=== PATIENT | female | born 1955 | race Caucasian/White ===

== ENCOUNTER 2016-07-15 10:17 | Day surgery (SDC) | payer BC ==
[~2016-07-15] VITALS: Ht 154.9 cm; Wt 77.1 kg
[~2016-07-15 10:17] MED LIST: AMITRIPTYLINE H25 MG PO; ASMANEX0.135 GM; CLOTRIMAZOLE10 MG PO; CYMBALTA60 MG PO; DULOXETINE HCL30 MG PO; EVOXAC30 MG PO; FLEXERIL10 MG PO; FLOMAX0.4 MG PO; FLUCONAZOLE100 M1 PO; HYDROXYCHLOROQ200 MG PO; HYDROXYCHLOROQUINE; LIPITOR; LIPITOR10 MG; LISINOPRIL5 MG PO; LORAZEPAM0.5 MG PO; LORTAB 5-325 M1 EACH PO; LYRICA25 MG PO; LYRICA50 MG; LYRICA50 MG PO; LYRICA75 MG PO; NAPROSYN-EC500 MG PO; NORCO 5/3251 TABLET PO; NUVIGIL150 MG PO; OMEPRAZOLE20 M1 PO; OMEPRAZOLE20 M3; OMEPRAZOLE40 M1 PO; PROMETHAZINE HC25 M1 PO; TRAMADOL HCL50 MG; TRAMADOL HCL50 MG PO; TRIAMCINOLONE A15 GM TP; TYLENOL EXTRA500 MG PO; VOLTAREN 1% GE100 GM TP; ZESTRIL,PRINIVIL5 MG; ZESTRIL,PRINIVIL5 MG PO; ZOFRAN ODT4 MG PO; ZOLOFT50 MG PO; ZOMIG5 MG PO; [UNRECOGNIZED DRUG - OTHER]
[2016-07-15 10:44] VITALS: BP 123/60
[2016-07-15 13:47] VITALS: BP 126/82
[2016-07-15 14:32] VITALS: BP 127/66
== END 2016-07-15 14:40 | disposition home or self-care (01) ==
LOC: SDC 10:17
DX: D24.1 Benign neoplasm of right breast (principal); N60.91 Unspecified benign mammary dysplasia of right breast; D47.2 Monoclonal gammopathy; M35.00 Sjogren syndrome, unspecified; G47.33 Obstructive sleep apnea (adult) (pediatric); I10 Essential (primary) hypertension; J45.909 Unspecified asthma, uncomplicated; M19.90 Unspecified osteoarthritis, unspecified site; K21.9 Gastro-esophageal reflux disease without esophagitis; Z92.21 Personal history of antineoplastic chemotherapy; Z88.6 Allergy status to analgesic agent; Z88.8 Allergy status to other drugs, medicaments and biological substances
CPT/HCPCS: 88305; J0131; J1100; J2250; J2405; J2765; J3010; S0020

== ENCOUNTER → 2017-07-31 | Outpatient (CLI) | payer BC ==
[~2017-07-31] MED LIST changes: +ALLERGY10 M1 PO; +LYRICA150 MG PO; -LYRICA75 MG PO; +MEDROL4 MG PO; +MOTRIN800 MG PO; +VICODIN 5-3001 EACH PO; +ZOLOFT100 MG PO; -ZOLOFT50 MG PO
== END | disposition home or self-care (01) ==
LOC: CDC 10:00
DX: Z01.810 Encounter for preprocedural cardiovascular examination (principal); N64.52 Nipple discharge
CPT/HCPCS: 93000

== ENCOUNTER 2017-08-06 05:58 | Day surgery (SDC) | payer BC ==
[~2017-08-06] VITALS: Ht 152.4 cm; Wt 77.1 kg
[2017-08-06 06:25] VITALS: BP 126/65
[2017-08-06 10:00] VITALS: BP 135/66
[2017-08-06 10:47] VITALS: BP 122/66
== END 2017-08-06 10:56 | disposition home or self-care (01) ==
LOC: SDC
PROC: 0HJT0ZZ Inspection of Right Breast, Open Approach (ICD-10-PCS; principal; 2017-08-06)
DX: N60.91 Unspecified benign mammary dysplasia of right breast (principal); N64.52 Nipple discharge; I10 Essential (primary) hypertension; J45.909 Unspecified asthma, uncomplicated; M79.7 Fibromyalgia; Z86.73 Personal history of transient ischemic attack (TIA), and cerebral infarction without residual deficits
CPT/HCPCS: 88305; J0131; J0690; J1100; J1170; J1885; J2250; J2405; J3010; S0020

== ENCOUNTER 2017-11-11 18:19 | Emergency (ER) | payer BC ==
[~2017-11-11] VITALS: Ht 152.4 cm; Wt 80.5 kg
[2017-11-11 18:23] VITALS: BP 154/124
== END 2017-11-11 22:13 | disposition left against medical advice (07) ==
LOC: EME 18:19
DX: R51 Headache (principal); M45.2 Ankylosing spondylitis of cervical region; M54.9 Dorsalgia, unspecified; R41.3 Other amnesia; Z53.21 Procedure and treatment not carried out due to patient leaving prior to being seen by health care provider

== ENCOUNTER 2017-11-13 10:59 | Emergency (ER) | payer BC ==
[~2017-11-13] VITALS: Ht 152.4 cm; Wt 79.5 kg
[2017-11-13 13:29] VITALS: BP 139/94
== END 2017-11-13 13:30 | disposition home or self-care (01) ==
LOC: EME 10:59
DX: S06.0X0A Concussion without loss of consciousness, initial encounter (principal); S13.4XXA Sprain of ligaments of cervical spine, initial encounter; S43.402A Unspecified sprain of left shoulder joint, initial encounter; S40.012A Contusion of left shoulder, initial encounter; S80.11XA Contusion of right lower leg, initial encounter; S70.11XA Contusion of right thigh, initial encounter; W10.9XXA Fall (on) (from) unspecified stairs and steps, initial encounter; I10 Essential (primary) hypertension
CPT/HCPCS: 70450; 72125; 73030; 99281; 99284; J0780; J1200

== ENCOUNTER → 2017-12-02 | Outpatient (CLI) | payer BC | END | disposition home or self-care (01) | LOC: EEG 11-25 10:00 | DX: R55 Syncope and collapse (principal) | CPT/HCPCS: 95954 ==